=== PATIENT | female | born 1965 | race Caucasian/White ===

== ENCOUNTER 2021-02-25 10:30 | Emergency (ER) | payer OTHER ==
[2021-02-25 11:34] VITALS: BP 138/88; PULSE 96; TEMP 98.9; BMI 22.3
== END 2021-02-25 11:34 | disposition home or self-care (01) ==
LOC: FER 10:30
DX: R05.9 Cough, unspecified (principal)
CPT/HCPCS: 71046-TC-FY; 87804; 99284-25; C9803; U0003; U0005

== ENCOUNTER 2021-03-26 10:31 | Emergency (ER) | payer OTHER ==
[2021-03-26] MEDS ORDERED: valACYclovir HCL 1000 MG TABLET PO ONE (10:52)
[2021-03-26 10:53] VITALS: BP 132/71; PULSE 91; TEMP 98.7; BMI 23.2
[2021-03-26] MEDS ORDERED: valACYclovir HCL 500 MG TABLET (FP) ONE (11:10)
== END 2021-03-26 11:14 | disposition home or self-care (01) ==
LOC: FER 10:31
DX: B02.9 Zoster without complications (principal)
CPT/HCPCS: 99283-25

== ENCOUNTER 2023-03-03 23:28 | Emergency (ER) | payer OTHER ==
[2023-03-03 23:31] VITALS: BP 130/62; PULSE 94; RESP 19; TEMP 98.3; BMI 22.3
== END 2023-03-04 01:11 | disposition home or self-care (01) ==
LOC: FER 23:28
DX: R10.11 Right upper quadrant pain (principal)
CPT/HCPCS: 99282-25